=== PATIENT | male | born 1945 | race Caucasian/White ===

== ENCOUNTER 2020-01-17 08:42 | Outpatient (CLI) | payer MEDICARE, BC, SELFPAY ==
--- NOTE | 2020-01-17 09:14 | NMCV_ITS ---
NM geneva perf SPECT r/s* [id number] Richards, [place] Age: 74 Gender: M : 1945 Exam Date: 01/17/2020 10:00 Ordering Phys: Payam Hicks MD ([email or web address]) Technologist: IDRIS Warner Exam Location: [facility] Indications: SOB STRESS TEST Please see separate stress test report in [facility] for full findings IMAGE PROTOCOL Rest/Stress 1 Lexiscan Day Radiopharmaceutical Dose (mCi) Administration Site Administered by Rest: Tc-99m 11.0 IV IDRIS Salgado Sestamibi Stress:Tc-99m 33.0 IV IDRIS Warner Sestamibi Rest: 17-Jan-2020 60 Discovery 630 Stress: 17-Jan-2020 45 Discovery 630 0.4mg Lexiscan. Supine position only as patient was unable to lay prone. SPECT RESULTS Technical Quality: Good Raw Data Analysis: Normal Image Corrections: No attenuation or motion correction applied Summed Stress Score: 10 Summed Rest Score: 11 Summed Difference Score: 1 PERFUSION FINDINGS Medium-sized area of fixed perfusion defect noted in basal to distal inferior wall suggestive of old myocardial infarction versus scarring. FUNCTIONAL RESULTS (calculated via Gated SPECT) Stress Image LV EF (%): 40 Stress EDV (mL):131 TID: 1.07 Stress ESV (mL):79 Rest Image LV EF (%): 40 FUNCTIONAL FINDINGS: Inferior wall akinesis IMPRESSIONS Medium-sized area of old myocardial infarction versus scarring noted in basal to distal inferior wall , EKG segment will be documented separately..Thsi study is negative for ischemia. Payam Hicks MD (Electronically Signed) Final Date: 18 January 2020 20:14 S
--- NOTE | 2020-01-17 09:14 | ECG_ITS ---
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 Interpretive Statements NAME OF STUDY: LEXISCAN SESTAMIBI STRESS TEST INDICATION: [Shortness of Breath, ] NOTE: Please note that this is the electrocardiogram portion of the Lexiscan/Sestamibi stress test. The perfusion scan will be documented separately. DATA: Baseline heart rate was [65] beats per minute. Baseline blood pressure was [173/102] millimeters of mercury. Target heart rate was [146]. Maximum heart rate achieved was 100[]. which was [68]% of the predicted target heart rate. Maximum blood pressure was [186/108] millimeters of mercury. The reason for ending the test was completion of the protocol. The patient did not experience any symptoms. ELECTROCARDIOGRAM: BASELINE: Sinus rhythm paced rythm EXERCISE: After Lexiscan injection, no ST-T changes suggestive of ischemic noted. No arrhythmia noted. CONCLUSION: Please note due to baseline abnormality of the EKG specificity and sensitivity of the EKG portion of LexiScan MIBI stress test will be low 1. EKG not suggestive of ischemia 2. Lexiscan injection unremarkable. 3. Perfusion scan will be documented separately. HEART: Regular S1 and S2. Electronically Signed On 01-19-2020 20:34:52 CDT by Payam Hicks M.D. [id number]
--- NOTE | 2020-01-17 09:14 | USCV_ITS ---
[place] Richards Age: 74 Gender: M : 1945 Exam Date: 01/17/2020 09:15 Ordering Phys: Payam Hicks MD ([email or web address]) Technologist: Herson Silveira Exam Location: [facility] [place] Indication: CP BP: 149 / 75 HR: Rhythm: Sinus Technical Quality: Adequate MEASUREMENTS (Male / Female) Normal Values 2D ECHO LV Diastolic Diameter PLAX 4.9 cm 4.2 - 5.9 / 3.9 - 5.3 cm LV Systolic Diameter PLAX 2.9 cm IVS Diastolic Thickness 1.0 cm 0.6 - 1.0 / 0.6 - 0.9 cm IVS Systolic Thickness 1.4 cm LVPW Diastolic Thickness 1.2 cm 0.6 - 1.0 / 0.6 - 0.9 cm LVPW Systolic Thickness 1.5 cm LVOT Diameter 2.2 cm LV Ejection Fraction 2D Teich 72.4 % LV Ejection Fraction MOD 2C 62.9 % LV Ejection Fraction 2C AL 62.9 % LA Diameter 4.7 cm LA Width 5.1 cm LA Height 4.5 cm RA Width 3.8 cm RA Height 5.5 cm Aorta at Sinotubular Diameter 3.4 cm M-MODE LV Diastolic Diameter MM 4.6 cm 4.2 - 5.9 / 3.9 - 5.3 cm LV Systolic Diameter MM 3.2 cm LV Ejection Fraction MM Teich 56.4 % IVS Diastolic Thickness MM 1.1 cm 0.6 - 1.0 / 0.6 - 0.9 cm IVS Systolic Thickness MM 1.6 cm LVPW Diastolic Thickness MM 1.3 cm 0.6 - 1.0 / 0.6 - 0.9 cm LVPW Systolic Thickness MM 1.3 cm RV Diastolic Diameter MM 1.8 cm Aortic Annulus Diameter 3.6 cm LA Ao Ratio MM 1.3 MV E Point Septal Separation 1.2 cm DOPPLER AV Peak Velocity 197.0 cm/s LVOT Peak Velocity 92.0 cm/s AV Area Cont Eq vti 1.4 cm squared AV Area Cont Eq pk 1.8 cm squared MV Area PHT 2.1 cm squared Mitral E to A Ratio 0.7 MV E' Velocity 7.0 cm/s Mitral E to MV E' Ratio 9.4 Mitral E to LV E' Lateral Ratio 9.4 Mitral E to LV E' Septal Ratio 9.5 TR Peak Velocity 151.0 cm/s TR Peak Gradient 9.1 mmHg TV Peak E Velocity 74.0 cm/s Right Atrial Pressure 3.0 mmHg Pulmonary Artery Systolic Pressu 12.1 mmHg FINDINGS Left Ventricle Normal left ventricular cavity size. Normal left ventricular systolic function. No regional wall motion abnormalities. Left ventricular ejection fraction is estimated at 56 %. Grade I/IV diastolic dysfunction (abnormal relaxation filling pattern), normal to mildly elevated filling pressures. Right Ventricle The right ventricle is normal in size and function. Right Atrium The right atrium is normal in size. Left Atrium The left atrium is normal in size. Mitral Valve Moderately thickened mitral valve. Moderate mitral annular calcification. No mitral valve stenosis. No mitral valve regurgitation. Aortic Valve Moderate aortic valve calcification. Moderate aortic valve stenosis, mean gradient 6.6 mmHg, BRIAN 1.4 cm squared. No aortic valve regurgitation. Tricuspid Valve Structurally normal tricuspid valve without significant stenosis or regurgitation. Pulmonary artery systolic pressure is normal. Pulmonic Valve Structurally normal pulmonic valve without significant stenosis. There is no pulmonic regurgitation. Pericardium Normal pericardium without effusion. Aorta Normal ascending aorta dimension. CONCLUSIONS 1-Normal left ventricular cavity size. Normal left ventricular systolic function. No regional wall motion abnormalities. Left ventricular ejection fraction is estimated at 56 %. Grade I/IV diastolic dysfunction (abnormal relaxation filling pattern), normal to mildly elevated filling pressures. 2-Moderately thickened mitral valve. Moderate mitral annular calcification. No mitral valve stenosis. No mitral valve regurgitation. 3-Moderate aortic valve calcification. Moderate aortic valve stenosis, mean gradient 6.6 mmHg, BRIAN 1.4 cm squared. No aortic valve regurgitation. 4-There is no pericardial effusion. 5-Pulmonary artery systolic pressure is within normal limits. 6-Right atrial pressure is around 5 mm of mercury. 7-There are no prior echocardiogram studies to compare. Payam Hicks MD (Electronically Signed) Final Date: 19 January 2020 19:19 S
[2020-01-17 09:15] VITALS: BMI 44.6
[2020-01-17] MEDS: regadenoson 0.4 Mg/5 ml Syringe IVP (10:44)
[2020-01-17 11:11] VITALS: BP 164/96; PULSE 74
== END 2020-01-17 08:43 | disposition home or self-care (01) ==
LOC: CDL 08:48
PROVIDERS: PCP Physician Assistant Medical; Visit Provider Internal Medicine Cardiovascular Disease
DX: R06.02 Shortness of breath (principal); I08.0 Rheumatic disorders of both mitral and aortic valves
CPT/HCPCS: 78452; 93017; 93306; A9500; J2785

== ENCOUNTER → 2022-01-11 10:18 | Outpatient (BNVA) | payer MEDICARE, BC, SELFPAY | PROVIDERS: PCP Nurse Practitioner Family; Visit Provider Internal Medicine Cardiovascular Disease | DX: Z45.010 Encounter for checking and testing of cardiac pacemaker pulse generator [battery] (principal) | CPT/HCPCS: 93280 ==

== ENCOUNTER → 2022-02-01 11:10 | Outpatient (BNVA) | payer MEDICARE, BC, SELFPAY | PROVIDERS: PCP Nurse Practitioner Family; Visit Provider Nurse Practitioner Family | DX: I10 Essential (primary) hypertension (principal); Z95.0 Presence of cardiac pacemaker | CPT/HCPCS: 99213; 99214 ==

== ENCOUNTER → 2022-04-12 11:02 | Outpatient (BNVA) | payer MEDICARE, BC, SELFPAY | PROVIDERS: PCP Nurse Practitioner Family; Visit Provider Internal Medicine Cardiovascular Disease | DX: Z45.010 Encounter for checking and testing of cardiac pacemaker pulse generator [battery] (principal) | CPT/HCPCS: 93279 ==

== ENCOUNTER → 2022-04-15 09:53 | Outpatient (BNVA) | payer MEDICARE, BC, SELFPAY | PROVIDERS: PCP Nurse Practitioner Family; Visit Provider Internal Medicine Cardiovascular Disease | DX: R07.2 Precordial pain (principal); I35.8 Other nonrheumatic aortic valve disorders; Z95.0 Presence of cardiac pacemaker; I10 Essential (primary) hypertension; I49.9 Cardiac arrhythmia, unspecified; Z87.891 Personal history of nicotine dependence | CPT/HCPCS: 93005; 99214 ==

== ENCOUNTER → 2022-06-11 13:54 | Outpatient (BNVA) | payer MEDICARE, BC, SELFPAY | PROVIDERS: PCP Nurse Practitioner Family; Referring Provider Nurse Practitioner Family; Visit Provider Orthopaedic Surgery | DX: M17.0 Bilateral primary osteoarthritis of knee (principal) | CPT/HCPCS: 73560; 73565; 99204 ==

== ENCOUNTER 2022-08-01 09:40 | Outpatient (CLI) | payer OTHER, SELFPAY ==
--- NOTE | 2022-08-01 10:00 | CT_ITS ---
WS: [id number] CT RIGHT KNEE, NONCONTRAST JOSE TECHNIQUE: Noncontrast CT of the RIGHT knee to include the RIGHT hip and ankle. JOSE protocol CLINICAL INFORMATION: pre op planning COMPARISON: None. DLP: 949.[address] scans at [facility] use at least one of these dose optimization techniques: automated e xposure control; mA and/or kV adjustment per patient size (includes targeted exams where dose is matc hed to clinical indication); or iterative reconstruction. FINDINGS: Advanced degenerative arthritis medial joint compartment with [id number] articulation. Hypertrophic changes along the joint line. Hypertrophic patella. Advanced joint space narrowing at the patellofem oral articulation. Mild degenerative arthritis sacroiliac joints. Vascular calcification. Mild degene rative narrowing both hips RIGHT greater than LEFT with subchondral cystic change. Prostate calcification. A few slightly prominent inguinal lymph nodes RIGHT greater than LEFT nonspec ific but likely reactive. Largest in the RIGHT measuring 14 mm. Tiny suprapatellar effusion. CT/CT knee RT [facility] IMPRESSION: Images obtained for preoperative purposes.
== END 2022-08-01 09:41 | disposition home or self-care (01) ==
LOC: RAD 09:41
PROVIDERS: PCP Nurse Practitioner Family; Visit Provider Orthopaedic Surgery
DX: Z01.818 Encounter for other preprocedural examination (principal)
CPT/HCPCS: 73700

== ENCOUNTER → 2022-08-02 10:01 | Outpatient (BNVA) | payer OTHER, SELFPAY | PROVIDERS: PCP Nurse Practitioner Family; Visit Provider Internal Medicine Cardiovascular Disease | DX: Z45.010 Encounter for checking and testing of cardiac pacemaker pulse generator [battery] (principal) | CPT/HCPCS: 93279 ==

== ENCOUNTER 2022-08-12 14:16 | Inpatient (IN) | payer OTHER, SELFPAY ==
[2022-08-05 11:11] VITALS: BMI 41.8
--- NOTE | 2022-08-05 11:33 | P.ANESASSM_ITS ---
Pre-Anesthetic Assessment Height/Weight: Height 1.8 m Weight 136.078 kg Operation Date: 08/12/22 07:00 Proposed Procedures p right bashir total knee arthroplasty/ 67886 ,M17.0(Right) - oNrman Padron MD Familial anesthetic complications: None Social No alcohol and No tobacco Exam alert, oriented x 3, clear to auscultation bilaterally and regular rate & rhythm Airway Mallampati: Class III Dentition: false Pulmonary None reported CV/HEM Arrythmia (bradycardia - pacemaker) and None reported echo CONCLUSIONS ?1-Normal left ventricular cavity size. Normal left ventricular ?systolic function. No regional wall motion abnormalities. Left ?ventricular ejection fraction is estimated at 56 %. Grade I/IV ?diastolic dysfunction (abnormal relaxation filling pattern), ?normal to mildly elevated filling pressures. ?2-Moderately thickened mitral valve. Moderate mitral annular ?calcification. No mitral valve stenosis. No mitral valve ?regurgitation. ?3-Moderate aortic valve calcification. Moderate aortic valve ?stenosis, mean gradient 6.6 mmHg, BRIAN 1.4 cm squared. No aortic valve ?regurgitation. ?4-There is no pericardial effusion. ?5-Pulmonary artery systolic pressure is within normal limits. ?6-Right atrial pressure is around 5 mm of mercury. ?7-There are no prior echocardiogram studies to compare. None reported Hepatic None reported GI None reported Metabolic Diabetes Mellitus (borderline) and Morbid Obesity [facility] [place]/skel Lower Back Pain and Osteoarthritis/DJD Neuropsych None reported Anesthetic Plan ASA status: 3 Anesthesia: Regional (specify below) Other: spinal and nerve Risk of > 500 ml blood loss (7ml/kg in children): Yes, adequate IV access and fluids planned Other Pertinent Information Patient refuses rbcs, platelets, and plasma.Will not accept cellsaver, even in continuity. Will research albumin to see if he would accept. Medications/Allergies Home Medications Medication Instructions Recorded Confirmed Last Taken Type acetaminophen 325 mg tablet 325 mg PO QID PRN Pain 03/09/21 08/05/22 Unknown History (Tylenol) carvedilol 6.25 mg tablet 6.25 mg PO BID 30 days #60 tabs 04/15/22 08/05/22 Unknown Rx metformin 500 mg tablet 500 mg PO BID 06/11/22 08/05/22 08/04/22 History tamsulosin 0.4 mg capsule 0.4 mg PO DAILY 06/11/22 08/05/22 Unknown History naproxen sodium 220 mg tablet 220 mg PO BID PRN Pain 08/05/22 08/05/22 Unknown History (Aleve) Allergies Allergy/AdvReac Type Severity Reaction Status Date / Time losartan Allergy Mild ADV-Weaknes Verified 06/11/22 13:40 s prednisone Allergy vision Verified 06/11/22 13:40 changes PFSH Anesthesia Medical History Hx of cardiac pacemaker Hypertension Family History Mother CAD (coronary artery disease) pacemaker Diabetes Father CAD (coronary artery disease) [place] Cancer Diabetes Brother CAD (coronary artery disease) Diabetes Sister Diabetes Other Hypertension Denies family history of Clotting disorder Dementia Chronic kidney disease (CKD) Suicide Anesthesia complication Bleeding disorder Lung disease Stroke Social History Smoking and tobacco status: former smoker Alcohol intake: current Alcohol intake frequency: holidays/special occasions only Data Anesthesia Cardiac Studies: Echocardiogram Ultrasound 01/17/20 Sestamibi Stress Test (Cardiology) 01/16
[2022-08-12] VITALS (17 sets, daily range): BP systolic 146–190; BP diastolic 85–110; PULSE 59–94; RESP 16–19; TEMP 36.4–36.9; O2SAT 93–96
--- NOTE | 2022-08-12 07:04 | W.PM.OPSFHP ---
Same Day Surgery H&P Indication for Procedure/HPI DATE OF PROCEDURE: August 12, 2022 CHIEF COMPLAINT/INDICATIONFOR SURGICAL PROCEDURE: Osteoarthritis bilateral knees here for right total knee arthroplasty PREOP DIAGNOSIS: Osteoarthritis right knee PLANNED PROCEDURE: Operation Date: 08/12/22 09:40 Proposed Procedures p right bashir total knee arthroplasty/ 13966 ,M17.0(Right) - Norman Padron MD 77 year old male patient here for right total knee arthroplasty. He states that he has had pain for 8 years. He states that he has pain in the anterior, medial and lateral knee. He states that his pain is reproduced with walking on uneven ground, prolonged standing and walking. He resulted to using a cane as his knee buckle and catch on him. He states that he has previously been treated with cortisone injections which gave him only temporary relief. He reports a prior knee meniscectomy in the 1969's. He takes naproxen for pain/discomfort.? He states he has been putting off knee surgery waiting for the ideal time.? Is now resolved.? He can scarcely walk more than 20 yards without severe discomfort.? He has horses and a small hobby farm and is unable to take care of things as he would like.? He now feels he is ready to consider knee replaced Medications/Allergies* Home Medications Medication Instructions Recorded Confirmed Type acetaminophen 325 mg tablet 325 mg PO QID PRN Pain 03/09/21 08/05/22 History (Tylenol) metformin 500 mg tablet 500 mg PO BID 06/11/22 08/05/22 History tamsulosin 0.4 mg capsule 0.4 mg PO DAILY 06/11/22 08/05/22 History naproxen sodium 220 mg tablet 220 mg PO BID PRN Pain 08/05/22 08/05/22 History (Aleve) Allergies/Adverse Reactions Allergy/AdvReac Type Severity Reaction Status Date / Time losartan Allergy Mild ADV-Weaknes Verified 06/11/22 13:40 s prednisone Allergy vision Verified 06/11/22 13:40 changes Pertinent History/Comorbid Conditions* Medical History (Updated 06/11/22 @ 14:27 by Norman Padron MD) Hx of cardiac pacemaker Hypertension Family History (Updated 04/15/22 @ 10:16 by Yoly Goncalves RN) Diabetes Mother Father Brother Sister CAD (coronary artery disease) Mother pacemaker Father [place] Brother Cancer Father Hypertension Denies family history of Clotting disorder Dementia Chronic kidney disease (CKD) Suicide Anesthesia complication Bleeding disorder Lung disease Stroke Social History Smoking and tobacco status: former smoker Alcohol intake: current Alcohol intake frequency: holidays/special occasions only Pertinent Exam Findings alert, oriented x 3, clear to auscultation bilaterally, regular rate & rhythm and operative site marked KNEE right Tender over right medial joint line RANGE OF MOTION: ? ? ? RIGHT LIMB ? Extension:10 ? Flexion: 100 Crepitance beneath atella Varus alignment knee which is not entirely passively correctable Palpable dorsalis pedis pulses bilaterally. MOTOR: Strong quadriceps hamstrings tibialis anterior and extensor houses longus strength SENSATION: Intact to light touch Recommendations Surgery/Procedure today Coding Level of Care Code Acute Code for Loren Mitchell
[2022-08-12] MEDS: gabapentin 300 mg Capsule PO (08:14)
[2022-08-12] MEDS: CELEcoxib 200 mg Capsule 400 MG PO (08:14)
[2022-08-12] MEDS: acetaminophen 500 mg Tablet 1000 MG PO ×3 (08:14→22:29)
[2022-08-12] MEDS: oxyCODONE 20 mg ER (12 HR) Tablet PO (08:14)
[2022-08-12 08:27] LABS: Glucose Point of Care 181 mg/dL (70-110)
--- NOTE | 2022-08-12 08:29 | ECG_ITS ---
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 Measurements Intervals [place] Rate: 61 P: 0 KS: 0 QRS: -68 QRSD: 190 T: 114 QT: 481 QTc: 486 Interpretive Statements ELECTRONIC VENTRICULAR PACEMAKER Compared to ECG 04/18/2018 09:00:26 No significant changes Electronically Signed On 08-12-2022 10:00:26 LEASING REPRESENTATIVE by Rudolph Jefferson M.D. [id number]
--- NOTE | 2022-08-12 09:18 | ANES.PAUD2 ---
Pre-Anesthetic Update Pre-Anesthetic Assessment: Date of Surgery/Procedure: 08/12/22 Preop Diagnosis: Osteoarthritis right knee Proposed Procedure: Operation Date: 08/12/22 09:40 Proposed Procedures p right bashir total knee arthroplasty/ 34282 ,M17.0(Right) - Norman Padron MD Any changes to Pre-Anesthetic Assessment?: No Last Intake: Intake Last Liquid Date 08/11/22 Last Liquid Time 21:00 Last Solid Date 08/08/22 Last Solid Time 19:00 Vitals: Temperature 97.6 F 08/12/22 08:04 Temperature Source Temporal Artery S can 08/12/22 08:04 Pulse Rate 94 08/12/22 08:04 Respiratory Rate 18 08/12/22 08:14 Respiratory Depth Normal 08/12/22 08:14 Blood Pressure 189/110 08/12/22 08:04 Blood Pressure Maira n 136 08/12/22 08:04 Pulse Oximetry 96 08/12/22 08:04 Oxygen Delivery Me thod 08/12/22 08:04 Exam: Pre-Anes Outpt Exam: alert, oriented x 3, clear to auscultation bilaterally and regular rate & rhythm Cardiac Studies: Echocardiogram Ultrasound 01/17/20 Sestamibi Stress Test (Cardiology) 01/17/20
[2022-08-12] MEDS: ceFAZolin 2,000 MG in sodium chloride 0.9% (plus) 50 ML 100 MG IV ×2 (10:13→18:05)
[2022-08-12] MEDS: tranexamic acid 1,000 mg/10mL SDV 1000 MG IV (11:00)
[2022-08-12] MEDS: ketorolac 30 mg/mL INJ XX (11:11)
[2022-08-12] MEDS: tranexamic acid 1,000 mg/10mL SDV 1000 MG XX (11:11)
[2022-08-12] MEDS: EPINEPHrine 1 mg/mL INJ XX (11:12)
--- NOTE | 2022-08-12 11:52 | ANES.PROC ---
Anesthesia Procedures Procedure/Date: 08/12/22 Nerve Block ^: Nerve Block 1: Main Anesthesia: spinal anesthesia block Time Out Performed: Yes Consent: requested by attending/covering physician, from patient, risks and benefits reviewed and patient agrees to proceed Nerve block location: adductor canal (right) Anesthesia monitors applied: pulse oximetry, EKG, BP cuff and oxygen Nerve block position: supine Anesthetic Used: ropivicaine 0.5% Amount of anesthesia used (mL): 20 Ultrasound used to: recognize landmarks Nerve Stimulator Used?: No Interscalene/Femoral BLK: 4 stimuplex 21 g needle used for position and inplane approach Injection: neg aspiration of heme Patient Tolerated Procedure: well Complications: none
--- NOTE | 2022-08-12 12:47 | XR_ITS ---
WS: [id number] Right knee, AP and lateral views, 08/12/2022 Clinical Data: Right Total Knee arthroplasty Comparison: Right knee, 06/19/2022 Findings: The right knee arthroplasty is in good position. There is soft tissue air in the distal right thigh, probably from recent surgery. XR/XR knee RT 1-2V 11417 Impression: Right knee arthroplasty.
--- NOTE | 2022-08-12 12:48 | P.OP_ITS ---
Operative Report Date of procedure: August 12, 2022 Pre-op diagnosis: Preop Diagnosis Osteoarthritis right knee Post-op diagnosis: same Post-op diagnosis: Same Post-op findings: Same Procedure done: [] total knee arthroplasty Implants: Mauricio Triathalon total knee arthroplasty components were used includin) Size 7 triathalon cruciate retaining femoral component 2) Size 8 Tritanium tibial component 3) Size 8/9mm thickness CS tibial bearing insert Pathology: none sent Surgeon: Norman Padron President [employer] Company: Jaleel Valdez President [employer] Company: The nurse practitioner the nurse practitioner assisted with critical portions of the case including positioning, draping, exposure, component implantation, closure and dressing application and is present through the entirety of the case. Anesthesia: Nerve Block (Spinal, adductor canal block) Estimated blood loss (mL): 200 Findings: The patient eburnated bone over the medial femoral condyle and medial tibial plateau. There thinning of his patellar cartilage and peripheral osteophytes but anatomy was preserved and the patella articulated well with the femoral component Condition: stable Disposition: PACU Brief History: The admission history and physical Procedure: The patient was taken to the operating room. Patient was given 1 g of tranexamic acid and 2 g of Ancef. The above anesthesia provided by the anesthesia service. A timeout was performed. The patient was prepped and draped in the usual fashion with the lower extremity exposed. A anterior incision was made, midline, from a point proximal to the patella to the distal tibial tubercle. The knee was entered through a medial parapatellar approach. The patella could be displaced laterally and the knee flexed. The patellar fat pad was resected to provide better visibility. Retractors were placed medially and laterally adjacent to the tibial plateau. At a point approximately 8 cm above the patella, 2 small incisions were made with a scalpel blade and 2 long threaded pins were placed into the anterior medial femur engaging both cortices. The femoral arrays were placed over these pins and secured. At a point 8 cm distal to the tibial tubercle. 2 shorter bicortical threaded pins were placed across the anterior medial tibia and the tibial arrays placed. A checkpoint was made just proximal and medial to the medial femoral condyle and just medial to the tibial plateau. As the knee was initially in 60 degrees of varus rongeur was used to remove osteophytes from the medial femoral condyle and medial tibial plateau. A release was also accomplished of the proximal medial collateral ligament from the tibia. After this release the knee could be brought into 3 degrees of anatomic varus. Small osteotomes were placed in the joint in both flexion and extension to determine ligamentous laxity. The tibia was cut an additional 2 degrees of varus and elevated 2 mm. The femur was cut in 2 degrees additional external rotation accommodate the lateral joint space and flexion.. The [employer] robot was then introduced to the field and the femur and tibia cut in accordance with our plan. he [employer] was then used to provide hemostasis, particularly about the posterior capsule. A trial with the above components provided excellent stability and full range of motion. The femur was then prepared for the femoral pegs of the component in the tibia for the tibial component. The femur and tibia were then press-fit into place. An osteotome was used to remove the lateral 8 mm of the patella to minimize chances of later impingement. A neurectomy was accomplished circumferentially about the patella with electrocautery and lateral osteophytes removed. Surfaces were cleaned with a gentamicin solution. The femur and tibia were then press-fit into place. The posterior capsule and collateral ligaments were then injected with a solution of 100 mL of 0.2% ropivacaine, 1 mL of a 1:1000 epinephrine solution, 30 mg of Toradol, and 1 g of tranexamic acid. Final polyethylene component was then snapped into place into the tibia. The extensor retinaculum was closed with a running 1 Stratafix interrupted 1 Ethibond. The subcutaneous tissues were closed with 2-0 Vicryl and the skin was closed with a running 4-0 Stratafix. The wound was covered with a Dermabond Prineo dressing. It was covered with 4xrs and a compressive Tubigauze was applied. The patient was taken to recovery room in stable condition.
--- NOTE | 2022-08-12 13:47 | PC.NURSE ---
1447-I have called for xray over 30 minutes ago, and called again about 10 minutes ago. I have been ready to take the patient upstairs for over 20 minutes. but still waiting on xray.
--- NOTE | 2022-08-12 13:49 | PC.NURSE ---
1349- xray finally arrived.
--- NOTE | 2022-08-12 14:54 | ANE.PACU2 ---
Inpatient post-anesthesia follow up: Airway intact: Yes Vital signs: Temperature 98.4 F Pulse Rate 61 Respiratory Rate 16 Blood Pressure 152/97 Pulse Oximetry 95 Oxygen Delivery Me thod Room Air Oxygen Flow Rate Fraction of Inspir ed Oxygen Hydration adequate: Yes Nausea and vomiting: No Pain level: 2 Mental status: Baseline
[2022-08-12] MEDS: oxyCODONE 5 mg IR Tab/Cap PO (14:56)
[2022-08-12] MEDS: sodium chloride 0.9% 1,000 ML 100 ML IV (18:05)
[2022-08-12] MEDS: carvedilol 6.25 mg Tablet PO (18:05)
[2022-08-12] MEDS: sennosides-docusate Tablet 2 TAB PO (18:14)
[2022-08-12] MEDS: CELEcoxib 200 mg Capsule PO (19:48)
[2022-08-13] VITALS: BP 137/83; PULSE 63; RESP 19; TEMP 36.6; O2SAT 96
[2022-08-13] MEDS: ceFAZolin 2,000 MG in sodium chloride 0.9% (plus) 50 ML 100 MG IV ×2 (02:13→08:07)
[2022-08-13 02:40] LABS: Hemoglobin 12.9 g/dL (11.7-16.6)
[2022-08-13 04:26] VITALS: BP 151/84; PULSE 60; RESP 19; TEMP 36.7; O2SAT 96
[2022-08-13 06:00] VITALS: PULSE 62
[2022-08-13] MEDS: acetaminophen 500 mg Tablet 1000 MG PO (06:30)
--- NOTE | 2022-08-13 07:05 | P.DS_ITS ---
Discharge Providers Date of Admission: 08/12/22 14:16 Date of Discharge: August 13, 2022 Attending Provider at Admission: Norman Gillette MD Attending Provider at Discharge: Norman Gillette MD Primary Care Provider: Zechariah Rodriguez Diagnoses at Discharge Discharge Diagnosis (1) Status post right knee replacement: Status: Acute Reason for Visit Reason for Visit: M17.0, 63801 Hospital Course Hospital Course The patient tolerated surgery well. They remained hemodynamically stable. They was begun on Eliquis and foot for DVT prophylaxis. The patient was mobilized with therapy beginning the day of surgery and by the first postoperative day independent with the walker. As the pain was adequately controlled and they were fully mobile they were discharged home. Physical Exam Narrative: On the day of discharge the knee incision was clean. They had no drainage. There is minimal swelling in the thigh and knee and the calf. No distal neurovascular deficits were noted Urinary Catheter Management: Doll: Cath Placed During This Visit: yes, but has since been removed by the nurse Reason for Continuing Indwelling Catheter: Decision to DC Catheter Urinary Catheter Date of Insertion: 08/12/22 Urinary Catheter Time of Insertion: 10:45 Date Urinary Catheter Removed: 08/13/22 Time Urinary Catheter Discontinued: 06:45 Discharge Data Studies Completed and Pending Completed Studies During Hospitalization Category Date Time Status XR knee RT 1-2V 93997 Routine Exams 08/12/22 12:47 Completed Radiology Impressions Knee X-Ray 08/12/22 12:47 Impression: Right knee arthroplasty. Laboratory Results Hgb 12.9 g/dL (11.7-16.6) 08/13/22 02:13 POC Glucose 181 mg/dL (70-110) H 08/12/22 08:19 Vitals Last Vital Signs Temp 98.1 F 08/13/22 04:26 Pulse 60 08/13/22 04:26 Resp 19 H 08/13/22 04:26 BP 151/84 08/13/22 04:26 Pulse Ox 96 08/13/22 04:26 O2 Del Method 08/12/22 16:00 Discharge Plan Discharge Patient Disposition: Home Health Service Condition: Stable Prescriptions: New celecoxib 200 mg Capsule 200 mg PO Q12H 14 Days Qty: 28 0RF acetaminophen 500 mg Tablet 1,000 mg PO Q8H 14 Days Qty: 84 0RF oxycodone 5 mg Tablet 5 mg PO Q4H PRN (Reason: Moderate Pain) 7 Days Qty: 40 0RF Eliquis 5 mg Tablet 2.5 mg PO BID 10 Days Qty: 10 0RF Continued carvedilol 6.25 mg tablet 6.25 mg PO BID 30 Days Qty: 60 5RF Rx Instructions: must administer with a meal/food metformin 500 mg tablet 500 mg PO BID tamsulosin 0.4 mg capsule 0.4 mg PO DAILY Discontinued acetaminophen [Tylenol] 325 mg tablet 325 mg PO QID PRN (Reason: Pain) naproxen sodium [Aleve] 220 mg Tablet 220 mg PO BID PRN (Reason: Pain) Discharge Orders: Discharge Order (Routine); Ordered 08/13/22 Ordered By: Norman Gillette Referrals: Jaleel Valdez FNP [Physician Senior Php Web Developer] - 08/16/22 8:30 am [facility], [Staff Physician] - Discharge Diet: Advance as tolerated Discharge Activity: Limit activity as instructed Patient Instructions: Oxycodone/Acetaminophen (By mouth), Celecoxib (By mouth), Apixaban (By mouth), Knee Replacement (GEN), Opioid Safety Activity Restrictions/Additional Instructions: Okay to shower Keep Tubigauze sleeve in place for swelling. Okay to remove for hygiene. Apply FirstIce up to 20 min/hr for pain and swelling Take Celebrex twice a day for the next 15 days for pain , discontinue other anti-inflammatories Take Tylenol 500mg (2 tabs) as needed 3 times a day for mild pain take oxycodone for breakthrough pain. Exercises per physical therapy. May weight-bear as tolerated on total knee arthroplasty IF HAVE ANY PROBLEMS OR QUESTIONS CALL HOSPITAL CHIEF OPERATOR LOCK TENDER AT AND ASK TO HAVE DR. GILLETTE PAGED. Discharge Attestations Time Spent in Discharge Care*: other Quality Metrics Clinical Quality Measures [ No reported AMI, CVA or VTE this stay] Coding Level of Care Code Acute [facility] note Diagnoses Status post right knee replacement Z96.651
[2022-08-13] MEDS: carvedilol 6.25 mg Tablet PO (08:07)
[2022-08-13] MEDS: CELEcoxib 200 mg Capsule PO (08:07)
[2022-08-13] MEDS: apixaban 5 mg Tablet 2.5 MG PO (08:07)
[2022-08-13] MEDS: sennosides-docusate Tablet 2 TAB PO (08:10)
[2022-08-13] MEDS: tamsulosin 0.4 mg Capsule PO (08:15)
[2022-08-13 09:31] VITALS: BP 160/76; PULSE 68; RESP 16; TEMP 36.5; O2SAT 96
== END 2022-08-13 11:53 | disposition home health service (06) | DRG 470 ==
LOC: MEDSURG 14:16
PROVIDERS: Admitting Provider Orthopaedic Surgery; PCP Nurse Practitioner Family; Visit Provider Orthopaedic Surgery
PROC: 8E0Y0CZ Robotic Assisted Procedure of Lower Extremity, Open Approach (ICD-10-PCS; CPT 27447; principal; 2022-08-12 09:40)
DX: M17.11 Unilateral primary osteoarthritis, right knee (principal); Z95.0 Presence of cardiac pacemaker; I10 Essential (primary) hypertension; Z87.891 Personal history of nicotine dependence
CPT/HCPCS: 36415; 36416; 51702; 73560; 73700; 82962; 85018; 93005; 97110; 97116; 97161; 97165; 97530; C1713; C1776; J0171; J0690; J1170; J1580; J1885; J2370; J2704; J2795; J7030

== ENCOUNTER → 2022-08-16 08:34 | Outpatient (BNVA) | payer OTHER, SELFPAY | PROVIDERS: PCP Nurse Practitioner Family; Visit Provider Nurse Practitioner Family | DX: Z96.651 Presence of right artificial knee joint (principal) | CPT/HCPCS: 99024 ==

== ENCOUNTER → 2022-08-30 08:17 | Outpatient (BNVA) | payer OTHER, SELFPAY | PROVIDERS: PCP Nurse Practitioner Family; Visit Provider Nurse Practitioner Family | DX: Z96.651 Presence of right artificial knee joint (principal) | CPT/HCPCS: 99213 ==

== ENCOUNTER → 2022-09-20 10:54 | Outpatient (BNVA) | payer OTHER, SELFPAY | PROVIDERS: PCP Nurse Practitioner Family; Visit Provider Nurse Practitioner Family | DX: Z96.651 Presence of right artificial knee joint (principal) | CPT/HCPCS: 73560; 73565; 99024 ==

== ENCOUNTER → 2022-10-14 11:31 | Outpatient (BNVA) | payer OTHER, SELFPAY | PROVIDERS: PCP Nurse Practitioner Family; Visit Provider Internal Medicine Cardiovascular Disease | DX: I35.8 Other nonrheumatic aortic valve disorders (principal); I49.8 Other specified cardiac arrhythmias; R94.39 Abnormal result of other cardiovascular function study; Z95.0 Presence of cardiac pacemaker; I10 Essential (primary) hypertension; Z87.891 Personal history of nicotine dependence | CPT/HCPCS: 99214 ==

== ENCOUNTER → 2022-12-19 12:55 | Outpatient (BNVA) | payer OTHER, SELFPAY | PROVIDERS: Visit Provider Nurse Practitioner Family | DX: Z96.651 Presence of right artificial knee joint (principal); M25.551 Pain in right hip | CPT/HCPCS: 73560; 73565; 99213 ==

== ENCOUNTER → 2022-12-26 13:43 | Outpatient (BNVA) | payer OTHER, SELFPAY | PROVIDERS: Visit Provider Nurse Practitioner Family | DX: M16.11 Unilateral primary osteoarthritis, right hip (principal); M54.10 Radiculopathy, site unspecified | CPT/HCPCS: 73502; 99213 ==

== ENCOUNTER → 2023-02-17 10:41 | Outpatient (BNVA) | payer OTHER, SELFPAY | PROVIDERS: Visit Provider Anesthesiology Pain Medicine | DX: M16.11 Unilateral primary osteoarthritis, right hip (principal) | CPT/HCPCS: 99204 ==

== ENCOUNTER → 2023-03-17 15:41 | Outpatient (BNVA) | payer OTHER, SELFPAY | PROVIDERS: Visit Provider Specialist | DX: M17.12 Unilateral primary osteoarthritis, left knee; M21.162 Varus deformity, not elsewhere classified, left knee; E66.01 Morbid (severe) obesity due to excess calories; Z68.41 Body mass index [BMI] 40.0-44.9, adult | CPT/HCPCS: 73560; 73565; 99204 ==

== ENCOUNTER → 2023-03-20 14:04 | Outpatient (BNVA) | payer OTHER, SELFPAY | PROVIDERS: Visit Provider Anesthesiology Pain Medicine | DX: M16.11 Unilateral primary osteoarthritis, right hip (principal) | CPT/HCPCS: 20610; 77002; J1030; J3490 ==

== ENCOUNTER 2023-04-02 15:11 | Outpatient (CLI) | payer OTHER, SELFPAY ==
--- NOTE | 2023-04-02 15:30 | CT_ITS ---
WS: [id number] CT LEFT KNEE, NONCONTRAST TECHNIQUE: Noncontrast CT of the LEFT knee to include the LEFT hip and ankle. [facility] CLINICAL INFORMATION: surgery COMPARISON: None. DLP: 2050.[address] scans at [facility] use at least one of these dose optimization techniques: automated e xposure control; mA and/or kV adjustment per patient size (includes targeted exams where dose is matc hed to clinical indication); or iterative reconstruction. FINDINGS: Advanced tricompartment arthritis LEFT knee with [id number] articulation medial joint compartment. Hypertrophic changes along the joint line. Hypertrophic patella. Advanced narrowing of the patellofem oral articulation. Osteopenia. Tiny suprapatellar effusion. Prominent prostate measuring 4.6 cm. Vasc ular calcification. Degenerative retrograde in the LEFT hip. Subchondral cystic change involving the RIGHT femoral head and acetabulum. IMPRESSION: Images obtained for preoperative purposes.
== END 2023-04-02 15:12 | disposition home or self-care (01) ==
PROVIDERS: PCP Emergency Medicine Emergency Medical Services; Visit Provider Specialist
DX: Z01.818 Encounter for other preprocedural examination (principal); M17.12 Unilateral primary osteoarthritis, left knee
CPT/HCPCS: 73700

== ENCOUNTER → 2023-04-07 11:44 | Outpatient (BNVA) | payer OTHER, SELFPAY | PROVIDERS: PCP Emergency Medicine Emergency Medical Services; Visit Provider Family Medicine | DX: Z01.818 Encounter for other preprocedural examination (principal) | CPT/HCPCS: 80053; 81000; 83036; 85025 ==

== ENCOUNTER → 2023-05-12 11:00 | Outpatient (BNVA) | payer OTHER, SELFPAY | PROVIDERS: PCP Emergency Medicine Emergency Medical Services; Visit Provider Internal Medicine Cardiovascular Disease | DX: I47.20 Ventricular tachycardia, unspecified (principal); Z95.0 Presence of cardiac pacemaker; I10 Essential (primary) hypertension; E11.9 Type 2 diabetes mellitus without complications; Z79.84 Long term (current) use of oral hypoglycemic drugs; Z87.891 Personal history of nicotine dependence | CPT/HCPCS: 99215 ==

== ENCOUNTER 2023-05-14 11:43 | Outpatient (CLI) | payer OTHER, SELFPAY ==
[2023-05-14 12:53] LABS: Basophils # 0.1 10^3/uL (0.0-0.1); Basophils % 0.9 %; Eosinophils # 0.3 10^3/uL (0.0-0.8); Eosinophils % 3.6 %; Hematocrit 45.7 % (37-53); Lymphocytes # 2.4 10^3/uL (0.8-4.8); Lymphocytes % 31.8 %; Mean Corpuscular HGB Conc 32.2 g/dL (30-55); Mean Corpuscular Volume 93.3 fl (82-101); Mean Platelet Volume 9.4 fL (7.4-10.4); Monocytes # 0.8 10^3/uL (0.2-0.9); Monocytes % 11.1 %; Neutrophils # 3.89 10^3/uL (1.8-7.7); Neutrophils % 52.3 %; Nucleated Red Blood Cells % 0 %; Platelet Count 253 10^3/cmm (157-399); Red Cell Distribution Width 13.8 % (12.1-15.1); White Blood Count 7.45 10^3/uL (3.29-11.43)
[2023-05-14 13:00] LABS: INR 1.03 (0.8-1.2)
[2023-05-14 13:07] LABS: Blood Urea Nitrogen 14 mg/dL (8-23); Calcium 9.3 mg/dL (8.5-10.5); Carbon Dioxide 25 mmol/L (22-29); Chloride 104 mmol/L (98-107); Glucose 195 mg/dL (65-115); Osmolality Calculated 294 mOsm/kg (285-295); Sodium 139 mmol/L (136-145)
== END 2023-05-14 11:44 | disposition home or self-care (01) ==
PROVIDERS: PCP Emergency Medicine Emergency Medical Services; Visit Provider Internal Medicine Cardiovascular Disease
DX: R06.02 Shortness of breath (principal); Z45.010 Encounter for checking and testing of cardiac pacemaker pulse generator [battery]; I48.91 Unspecified atrial fibrillation; Z79.01 Long term (current) use of anticoagulants; I25.118 Atherosclerotic heart disease of native coronary artery with other forms of angina pectoris
CPT/HCPCS: 36415; 80048; 85025; 85610; 86850; 86900

== ENCOUNTER → 2023-05-29 09:10 | Outpatient (BNVA) | payer OTHER, SELFPAY | PROVIDERS: PCP Emergency Medicine Emergency Medical Services; Visit Provider Dermatology | DX: L57.0 Actinic keratosis (principal); D69.2 Other nonthrombocytopenic purpura; D22.39 Melanocytic nevi of other parts of face; D36.14 Benign neoplasm of peripheral nerves and autonomic nervous system of thorax; L82.1 Other seborrheic keratosis | CPT/HCPCS: 17000; 99203 ==

== ENCOUNTER 2023-06-09 05:52 | Outpatient (CLI) | payer OTHER, SELFPAY ==
[2023-06-09 06:00] VITALS: BP 167/99; PULSE 65; RESP 18; TEMP 36.6; O2SAT 98; BMI 42.3
--- NOTE | 2023-06-09 07:29 | W.PM.OPSUD ---
Surgery/Procedure H&P Update DATE OF PROCEDURE: June 09, 2023 DATE H&P PERFORMED: 05/12/23 H&P UPDATE INFORMATION: I have reviewed H&P completed within last 30 days, I have examined patient prior to procedure and No changes to prior documentation PREOP DIAGNOSIS: High degree AV block/ CHRIS PRIMARY INDICATION FOR PROCEDURE: High degree AV block/ symptomatic bradycardia/ Pacemaker CHRIS PLANNED PROCEDURE: Operation Date: 06/09/23 07:00 Proposed Procedures p generator change out 01498,Z45.010(Not Applicable) - Disha Lam MD PATIENT REASSESSED PRIOR TO SEDATION, WITH NO CHANGE NOTED: Yes PHYSICAL EXAM: alert, oriented x 3, clear to auscultation bilaterally and regular rate & rhythm AIRWAY EVAL/ANESTHESIA PLAN: normal airway, see other exam findings, ASA III, Monitored Anesthesia, Local Anesthesia, Risks, benefits & alternatives of sedation and/or procedure discussed and Patient agrees to continue as planned
[2023-06-09 08:50] VITALS: BP 151/80; PULSE 60; RESP 15; TEMP 36; O2SAT 98
--- NOTE | 2023-06-09 09:36 | P.OP_ITS ---
Operative Report Date of procedure: June 09, 2023 Surgeon: Disha Lam MD Procedure: PROCEDURE: PACEMAKER REVISION PREOPERATIVE DIAGNOSIS: Pacemaker elective replacement indication. POSTOPERATIVE DIAGNOSIS: Pacemaker elective replacement indication. ESTIMATED BLOOD LOSS: Around 5 milliliters. COMPLICATIONS: None. BRIEF HISTORY: The patient is 78-year-old white male who had a permanent pacemaker implantation for. The patient was found to have elective replacement indication, during routine office followup evaluation. For further management of patient's condition for the symptomatic bradycardia, the patient required a pacemaker revision. Patient required a dual-chamber pacemaker for and the need for AV synchrony The procedure was explained to the patient and family in detail with the risks and benefits. Apparently the atrial lead was turned off more than a year ago for over sensing. Patient has been doing okay with the VVIR pacing mode. We have decided to use the dual-chamber pacer still, anticipating a need for atrial pacing in the future. These issues were discussed with the patient and family prior to the procedure. The risks of bleeding, hematoma, vascular injury, infection and other concomitant complications were explained in detail, which the patient understood well and consented to proceed. PROCEDURES PERFORMED: 1. Explantation of the old pacemaker generator. 2. Implantation of the new generator. 3. A venogram was performed and the left subclavian and the SVC via point to be patent. The atrial lead appeared to have lost the slack/displaced The patient brought to the [facility]. The left side of the neck and the subclavian area were cleaned and draped in a sterile fashion. 1% Xylocaine was used for local anesthetic agent. A 2 inch long incision was made just below the previous pacemaker scar. By sharp and blunt dissection, the pacemaker pocket was accessed. The old generator was delivered from the pocket. The generator was detached from the lead. The new Medtronic generator was attached to the lead. The pacemaker pocket was copiously irrigated with vancomycin solution. Complete hemostasis was achieved. The lead was positioned behind the generator and the generator was attached to the pectoralis fascia by suturing with 0 Surgilon. Sponge counts were confirmed. The pacemaker pocket was closed in layers. Skin was approximated using 4-0 Vicryl. EXPLANTED DEVICE: Pacemaker Generator: Brand: Sensia DR Model number: [id number] Serial number : [id number] Date of implant: 07/19/2014 IMPLANTED DEVICES: Ventricular Lead: Date of implantation: 07/19/2014 Model number: [id number] Serial number: [id number] Make: Medtronic. Atrial lead Date of implantation: 07/19/2014 Model number: 5076 Serial number: [id number] Make: Medtronic. Implanted Generator: Date of implantation : 06/09/2023 Brand: Laura XT MRI Surescan. Model number: W1 DR 01 Serial number: [id number] Make: Medtronic Stimulation Threshold: The ventricular sensing was not obtained since the patient was pacer dependent ventricular lead impedance was 513 ohms and the pacing threshold was 0.75 volts at 0.4 milliseconds. The atrial sensing was- millivolts. Atrial lead impedance was 530 ohms and was not pacing The pacemaker was set for VVIR mode with an upper rate of 130 and a lower rate of 60. A pressure dressing was applied over the pacemaker site. The patient was transferred back to medical floor in stable condition. Sponge counts were correct.
[2023-06-09] MEDS: amlodipine 10 mg Tablet PO (10:09)
[2023-06-09] MEDS: metformin 500 mg Tablet PO ×2 (10:09→18:28)
[2023-06-09] MEDS: atorvastatin 40 mg Tablet PO (10:09)
[2023-06-09 11:36] VITALS: BP 148/77; PULSE 67; RESP 17; TEMP 36.3; O2SAT 94
[2023-06-09 15:57] VITALS: BP 137/74; PULSE 60; RESP 19; TEMP 36.4; O2SAT 96
[2023-06-09] MEDS: ceFAZolin 3,000 MG in sodium chloride 0.9% (100 ml) 100 ML 200 MG IV ×2 (16:50→22:56)
[2023-06-09] MEDS: HYDROcodone-acetaminophen 5-325 mg Tablet 1 TAB PO (19:34)
[2023-06-09 19:57] VITALS: BP 147/68; PULSE 60; RESP 19; TEMP 36.8; O2SAT 97
[2023-06-09 21:40] VITALS: PULSE 65
[2023-06-10 00:18] VITALS: BP 158/85; PULSE 60; RESP 17; TEMP 36.6; O2SAT 98
[2023-06-10 04:45] VITALS: BP 140/83; PULSE 60; RESP 14; TEMP 36.6; O2SAT 95
--- NOTE | 2023-06-10 05:05 | ECG_ITS ---
[facility] Test Date: 2023-06-10 Pat Name: Maine Richards Department: Room: 111 Gender: Male Management Internship: : 1945 Requested By: Disha Lam Order Number: [id number] Hernandez MD: Disha Lam M.D. Measurements Intervals [place] Rate: 59 P: 0 MI: 0 QRS: -77 QRSD: 200 T: 106 QT: 509 QTc: 508 Interpretive Statements ELECTRONIC VENTRICULAR PACEMAKER ABNORMAL RHYTHM ECG Compared to ECG 08/12/2022 08:29:06 No significant changes Electronically Signed On 06-10-2023 23:24:49 NURSERY LABORER by Disha Lam M.D. [id number]
[2023-06-10 05:56] VITALS: PULSE 60
[2023-06-10] MEDS: ceFAZolin 3,000 MG in sodium chloride 0.9% (100 ml) 100 ML 200 MG IV (06:09)
[2023-06-10] MEDS: atorvastatin 40 mg Tablet PO (07:58)
[2023-06-10] MEDS: metformin 500 mg Tablet PO (07:58)
[2023-06-10] MEDS: amlodipine 10 mg Tablet PO (07:59)
[2023-06-10 08:00] VITALS: BP 146/82; PULSE 60; RESP 17; TEMP 36.6; O2SAT 97
--- NOTE | 2023-06-10 12:40 | PM.PN ---
Subjective Subjective: This patient admitted to hospital yesterday following the pacemaker revision. He had an uneventful postprocedure course. No hematoma bleeding from the pacemaker site. No arrhythmias are noted. Vital signs are remaining stable. Medications: Medication Review Details: Current Medications Hydrocodone Bitart/Acetaminophen (Hydrocodone-Acetaminophen 5-325 Mg Tablet) 1 tab PO Q4H PRN PRN Reason: MODERATE PAIN Last Admin: 06/09/23 19:34 Dose: 1 tab Amlodipine Besylate (Amlodipine 10 Mg Tablet) 10 mg PO DAILY [facility] Last Admin: 06/10/23 07:59 Dose: 10 mg Atorvastatin Calcium (Atorvastatin 40 Mg Tablet) 40 mg PO DAILY [facility] Last Admin: 06/10/23 07:58 Dose: 40 mg Sodium Chloride (Sodium Chloride 0.9%) 1,000 mls @ 75 mls/hr IV .[id number] [facility] Last Admin: 06/10/23 10:24 Dose: Not Given Metformin HCl (Metformin 500 Mg Tablet) 500 mg PO BID [facility] Last Admin: 06/10/23 07:58 Dose: 500 mg Vitals/I&O/Wt Last Vital Signs Temp 97.9 F 06/10/23 08:00 Pulse 60 06/10/23 08:00 Resp 17 06/10/23 08:00 BP 146/82 06/10/23 08:00 Pulse Ox 97 06/10/23 08:00 O2 Del Method Room Air 06/10/23 08:00 06/09/23 06/10/23 06/10/23 22:59 06:59 14:59 Intake Total 820 / 1060 340 / 1400 340 / 340 Output Total 740 / 740 400 / 1140 Balance 80 / 320 -60 / 260 340 / 340 Weight last 48 hrs Weight 303 lb Physical Exam Narrative: GENERAL: The patient is alert and oriented times three. Not in any acute distress. HEENT: No significant pallor, icterus or lymphadenopathy.Oral cavity: There are no mucous membrane lesions. NECK: Trachea appears to be central. No masses noted. No JVD or thyromegaly appreciated. RESPIRATORY: Chest is symmetrical. No intercostals muscle retraction or any accessory muscle activation. There is no chest wall tenderness. Breath sounds are heard bilaterally. No rales or rhonchi heard. No evidence of any consolidation. BREASTS: Deferred. HEART: The heart sounds are normal. No S3 or S4. Ejection systolic murmur grade 3 or 6 in the aortic area. No pericardial rub ABDOMEN: No vessel pulsations or distention. No tenderness. No organomegaly appreciated. Bowel sounds are normally heard. : Deferred. RECTAL: Deferred. LYMPHATIC: No lymphadenopathy noted in the neck. EXTREMITIES: No edema or cyanosis. No clubbing. MUSCULOSKELETAL: No acute joint deformities or swelling SKIN: There are no significant rashes or ecchymosis NEUROPSYCHIATRIC: The patient is alert and oriented x3. Appears to be in a good mood. No tremors or rigidity noted. A&P Assessment and plan (1) Presence of permanent cardiac pacemaker: Patient status post pacemaker revision. Currently remaining stable. The pacemaker was interrogated this morning. The function was found to be appropriate. (2) Aortic valve sclerosis: (3) Ventricular arrhythmia: Since the patient's symptoms are stable with no recent change, is advised to continue on the current medications. Advised to continue with the medication and exercise. (4) Hypertension: The blood pressure seems to be in the normal range. Qualifiers: Hypertension type: essential hypertension Qualified Code(s): I10 - Essential (primary) hypertension Plan Since the patient is remained stable with no new symptoms, he is being discharged home today. Will be seen in the clinic next week by the nurse practitioner for a wound check and pacemaker check Patient is to take p.o. antibiotics for 5 days-prescription is given Multivitamins for 2 weeks Appointment with me in the office in 1 month Attestations Medical Necessity Statement*: Discharge home today Coding Level of Care Code 36483 Diagnoses Presence of permanent cardiac pacemaker Z95.0 Aortic valve sclerosis I35.8 Ventricular arrhythmia I49.9 Hypertension I10 Hypertension type: essential hypertension
--- NOTE | 2023-06-10 14:15 | PC.NURSE ---
Discharge Note Patient discharged to home via POV accompanied by family. Discharge instructions reviewed with patient and/or sales representative publications. Mobile pharmacy medications and/or prescriptions provided. Belongings/home medications returned.
== END 2023-06-10 14:16 | disposition home or self-care (01) ==
LOC: CCL 08:08 → CSU 16:24
PROVIDERS: PCP Emergency Medicine Emergency Medical Services; Visit Provider Internal Medicine Cardiovascular Disease
DX: Z45.010 Encounter for checking and testing of cardiac pacemaker pulse generator [battery] (principal); I35.8 Other nonrheumatic aortic valve disorders; I49.9 Cardiac arrhythmia, unspecified; I10 Essential (primary) hypertension
CPT/HCPCS: 33228; 36415; 85610; 93005; 96361; 96365; 96367; 96376; 97165; 99152; 99153; A4216; C1769; C1786; J0690; J2250; J3010; J3370; J7030; J7040; J7050

== ENCOUNTER 2023-06-09 06:00 | Outpatient (CLI) | payer OTHER, SELFPAY ==
--- NOTE | 2023-06-09 06:00 | XACV_ITS ---
Exam Room: 1 Ht: 180 cm Wt: 137 kg BSA: 2.69 m2 Gender: Male : 1945 Any Known Allergies: Other Exam Priority: Routine Procedure(s): Procedure Description: Diagnostic procedure Procedure Description: Miscellaneous Procedure Description: Generator Replacement PP (EOL) Diagnostic Cath Status: Elective Diagnostic Findings * A left subclavian venogram was performed in the AP view by injecting 20 cc of Omnipaque into the left antecubital vein. The left subclavian and the superior vena cava where found to be patent. The right atrial lead appeared to be at to be attached to the upper part of the right atrium, close to the superior vena cava. Conclusions 1. Patient with a dual-chamber pacemaker implantation in June 2014. Atrial lead was found to be over sensing. Venogram was performed to see the patency of the subclavian vein. 2. The subclavian venogram revealed patent left subclavian vein and the superior vena cava. The atrial lead appeared to be attached to the upper part of the right atrium near to the superior vena cava with no slack. Clinical Evaluation EBL: 5mL-10mL Procedural Details Procedure Consent Obtained. Admit Source: Out Patient. Pre-Procedure Time Out. Ancef 1g IV was given at 0732 in clinical laboratory director. Supplies: Cath pack, micropunture, bovie pen, 2-0 silk, 0 surgilon, 3-0 vicryl, 4-0 vicryl. Pre sponge count: 55. Pre sharps count: 19. Pre instrument count: 10. Baseline sample Acquired. HR: 65 BPM. Physician notified. Current diagnosis: PPM CHRIS. PERRLA. Strong, equal hand pie maker bilaterally. Lungs clear x 5 lobes. IV Site on Arrival: 20 gauge in the left anticubital. IV Fluids: 0.9% NaCl at 75ml/hr. 0 mL infused prior to bed laborer. Oxygen started at 2liters/min via nasal canula. bilateral subclavian region was prepped with chloroprep then draped in the usual sterile fashion. Physician arrived. Physician scrubbed in. Time out performed with cath team. 20 mL contrast injection was performed for subclavian visualization. Lidocaine 1% with epi infiltrated to Left subclavian area. Incision and pacer pocket made in left subclavian region. Bovie pen used to cauterize bleeding vessel. Lidocaine 1% with epi infiltrated to Left subclavian area. 1 instrument added. Generator out of pocket. V-lead dettached from generator. A-lead dettached from generator. Generator attached and tested. Antibiotic flush used to clean pacer pocket. Generator secured with surgilon. Generator Lot# [id number] EXP 11-22-2024. Subcutaneous tissue closed with 3-0 vicryl. Cutaneous tissue closed with 4-0 vicryl. All final counts correct. left subclavian pocket dressed per physician order. Armen wrap and 4x4's in place. No bleeding or hematoma noted at left subclavian pocket. Total IV fluids: 90 mL. Medication's Wasted: Lidocaine 1% with epi = 4 mL. Medication's Wasted: Other = Versed 1 mg. PERRLA. Strong, equal hand pie maker bilaterally. No VTE prophylaxis required. Post Procedure: Pulses reassessed and unchanged. Post-op diagnosis: CHRIS. Estimated blood loss: 5mL-10mL. Complications: None. Procedure completed. Vital chart was stopped. Procedure Medications Start: 7:34 AM Stop: 7:34 AM Medication: Versed Amount: 1 mg Route: I.V. Start: 7:34 AM Stop: 7:34 AM Medication: Fentanyl Amount: 50 mcg Route: I.V. Start: 8:02 AM Stop: 8:02 AM Medication: Versed 1 mg and Fentanyl 25 mcg Amount: 1 Route: I.V. Start: 8:10 AM Stop: 8:10 AM Medication: Fentanyl Amount: 25 mcg Route: I.V. Start: 8:15 AM Stop: 8:15 AM Medication: Versed Amount: 1 mg Route: I.V. I, the attending physician, have reviewed and verified all procedure medications. Yes, all medications given per verbal order History/Risk Factors Hypertension: Yes Dyslipidemia: Yes Peripheral Arterial Disease (PAD): No Myocardial Infarction (NC): No Obesity: Yes Renal Disease: No Tobacco Use: Former Prior Interventions PCI: No CABG: No Valve Surgery: No Report Signatures Finalized by Dr Disha Lam MD [facility] on 06/09/2023 01:39 PM
[2023-06-09 06:24] LABS: Basophils # 0.1 10^3/uL (0.0-0.1); Basophils % 0.9 %; Eosinophils # 0.3 10^3/uL (0.0-0.8); Eosinophils % 3.8 %; Hematocrit 45.4 % (37-53); Lymphocytes % 34.9 %; Mean Corpuscular HGB Conc 32.4 g/dL (30-55); Mean Corpuscular Hemoglobin 30.3 pg (27-33); Mean Corpuscular Volume 93.6 fl (82-101); Mean Platelet Volume 9.2 fL (7.4-10.4); Monocytes # 0.9 10^3/uL (0.2-0.9); Monocytes % 10.7 %; Neutrophils # 4.17 10^3/uL (1.8-7.7); Neutrophils % 49.3 %; Nucleated Red Blood Cells % 0 %; Platelet Count 274 10^3/cmm (157-399); Red Blood Count 4.85 10^6/uL (3.85-5.65); Red Cell Distribution Width 14.6 % (12.1-15.1); White Blood Count 8.47 10^3/uL (3.29-11.43)
[2023-06-09 06:43] LABS: Anion Gap 13.1 (5-19); Blood Urea Nitrogen 16 mg/dL (8-23); Calcium 9.3 mg/dL (8.5-10.5); Carbon Dioxide 27 mmol/L (22-29); Chloride 106 mmol/L (98-107); Glucose 105 mg/dL (65-115); Osmolality Calculated 296 mOsm/kg (285-295); Potassium 4.1 mmol/L (3.5-5.1); Sodium 142 mmol/L (136-145)
== END 2023-06-09 06:01 | disposition home or self-care (01) ==
LOC: CCL 07-24 14:59
PROVIDERS: PCP Emergency Medicine Emergency Medical Services; Visit Provider Internal Medicine Cardiovascular Disease
DX: Z45.010 Encounter for checking and testing of cardiac pacemaker pulse generator [battery] (principal); I49.9 Cardiac arrhythmia, unspecified; I10 Essential (primary) hypertension; E11.9 Type 2 diabetes mellitus without complications; Z79.84 Long term (current) use of oral hypoglycemic drugs; Z87.891 Personal history of nicotine dependence; E78.5 Hyperlipidemia, unspecified
CPT/HCPCS: 36415; 80048; 85025; J0690

== ENCOUNTER → 2023-06-16 09:51 | Outpatient (BNVA) | payer OTHER, SELFPAY | PROVIDERS: PCP Emergency Medicine Emergency Medical Services; Visit Provider Nurse Practitioner Family | DX: Z95.0 Presence of cardiac pacemaker (principal) | CPT/HCPCS: 99024; 99213 ==

== ENCOUNTER → 2023-08-04 09:59 | Outpatient (BNVA) | payer OTHER, SELFPAY | PROVIDERS: PCP Emergency Medicine Emergency Medical Services; Visit Provider Internal Medicine Cardiovascular Disease | DX: Z95.0 Presence of cardiac pacemaker (principal); I10 Essential (primary) hypertension; I35.8 Other nonrheumatic aortic valve disorders; E11.9 Type 2 diabetes mellitus without complications; I49.8 Other specified cardiac arrhythmias; Z87.891 Personal history of nicotine dependence; Z79.84 Long term (current) use of oral hypoglycemic drugs | CPT/HCPCS: 99214 ==

== ENCOUNTER → 2023-08-14 13:07 | Outpatient (BNVA) | payer OTHER, SELFPAY | PROVIDERS: PCP Emergency Medicine Emergency Medical Services; Visit Provider Podiatrist Foot & Ankle Surgery | DX: L60.3 Nail dystrophy (principal); G62.9 Polyneuropathy, unspecified; E11.42 Type 2 diabetes mellitus with diabetic polyneuropathy; Z79.84 Long term (current) use of oral hypoglycemic drugs | CPT/HCPCS: 11721; 99203 ==

== ENCOUNTER → 2023-11-10 12:43 | Outpatient (BNVA) | payer OTHER, SELFPAY | PROVIDERS: PCP Emergency Medicine Emergency Medical Services; Visit Provider Podiatrist Foot & Ankle Surgery | DX: L60.3 Nail dystrophy (principal); G62.9 Polyneuropathy, unspecified; E11.42 Type 2 diabetes mellitus with diabetic polyneuropathy; Z79.84 Long term (current) use of oral hypoglycemic drugs | CPT/HCPCS: 11721 ==

== ENCOUNTER → 2024-01-20 12:48 | Outpatient (BNVA) | payer OTHER, SELFPAY | PROVIDERS: PCP Emergency Medicine Emergency Medical Services; Visit Provider Podiatrist Foot & Ankle Surgery | DX: L60.3 Nail dystrophy (principal); G62.9 Polyneuropathy, unspecified; E11.42 Type 2 diabetes mellitus with diabetic polyneuropathy; Z79.84 Long term (current) use of oral hypoglycemic drugs | CPT/HCPCS: 11721 ==

== ENCOUNTER → 2024-02-03 09:42 | Outpatient (BNVA) | payer OTHER, SELFPAY | PROVIDERS: PCP Emergency Medicine Emergency Medical Services; Visit Provider Internal Medicine Cardiovascular Disease | DX: I10 Essential (primary) hypertension (principal); Z95.0 Presence of cardiac pacemaker; I49.9 Cardiac arrhythmia, unspecified; I35.8 Other nonrheumatic aortic valve disorders; E11.9 Type 2 diabetes mellitus without complications; E66.01 Morbid (severe) obesity due to excess calories; Z68.41 Body mass index [BMI] 40.0-44.9, adult; Z72.0 Tobacco use; Z79.84 Long term (current) use of oral hypoglycemic drugs | CPT/HCPCS: 99214 ==

== ENCOUNTER → 2024-04-13 10:45 | Outpatient (BNVA) | payer OTHER, SELFPAY | PROVIDERS: PCP Emergency Medicine Emergency Medical Services; Visit Provider Podiatrist Foot & Ankle Surgery | DX: L60.3 Nail dystrophy (principal); G62.9 Polyneuropathy, unspecified; E11.42 Type 2 diabetes mellitus with diabetic polyneuropathy; Z79.84 Long term (current) use of oral hypoglycemic drugs | CPT/HCPCS: 11721 ==

== ENCOUNTER → 2024-06-15 10:37 | Outpatient (BNVA) | payer OTHER, SELFPAY | PROVIDERS: PCP Emergency Medicine Emergency Medical Services; Visit Provider Podiatrist Foot & Ankle Surgery | DX: L60.3 Nail dystrophy (principal); G62.9 Polyneuropathy, unspecified; E11.42 Type 2 diabetes mellitus with diabetic polyneuropathy; Z79.84 Long term (current) use of oral hypoglycemic drugs | CPT/HCPCS: 11721 ==

== ENCOUNTER → 2024-08-03 14:13 | Outpatient (BNVA) | payer OTHER, SELFPAY | PROVIDERS: PCP Emergency Medicine Emergency Medical Services; Visit Provider Internal Medicine Cardiovascular Disease | DX: I10 Essential (primary) hypertension (principal); Z95.0 Presence of cardiac pacemaker; I35.8 Other nonrheumatic aortic valve disorders; E11.9 Type 2 diabetes mellitus without complications; E66.01 Morbid (severe) obesity due to excess calories; Z68.41 Body mass index [BMI] 40.0-44.9, adult; I49.8 Other specified cardiac arrhythmias; Z79.84 Long term (current) use of oral hypoglycemic drugs | CPT/HCPCS: 99214 ==

== ENCOUNTER → 2024-09-14 09:42 | Outpatient (BNVA) | payer OTHER, SELFPAY | PROVIDERS: PCP Emergency Medicine Emergency Medical Services; Visit Provider Podiatrist Foot & Ankle Surgery | DX: E11.8 Type 2 diabetes mellitus with unspecified complications (principal); L60.3 Nail dystrophy; G62.9 Polyneuropathy, unspecified; E11.42 Type 2 diabetes mellitus with diabetic polyneuropathy; Z79.84 Long term (current) use of oral hypoglycemic drugs | CPT/HCPCS: 99213 ==

== ENCOUNTER → 2024-11-16 09:47 | Outpatient (BNVA) | payer OTHER, SELFPAY | PROVIDERS: PCP Emergency Medicine Emergency Medical Services; Visit Provider Podiatrist Foot & Ankle Surgery | DX: E11.42 Type 2 diabetes mellitus with diabetic polyneuropathy (principal); L60.3 Nail dystrophy; L84 Corns and callosities; G62.9 Polyneuropathy, unspecified; B35.3 Tinea pedis; Z79.84 Long term (current) use of oral hypoglycemic drugs | CPT/HCPCS: 11056; 11721; 99213 ==

== ENCOUNTER → 2025-02-15 09:45 | Outpatient (BNVA) | payer OTHER, SELFPAY | PROVIDERS: PCP Nurse Practitioner Family; Visit Provider Podiatrist Foot & Ankle Surgery | DX: E11.42 Type 2 diabetes mellitus with diabetic polyneuropathy (principal); L60.3 Nail dystrophy; G62.9 Polyneuropathy, unspecified; Z79.84 Long term (current) use of oral hypoglycemic drugs | CPT/HCPCS: 11721 ==

== ENCOUNTER → 2025-02-18 10:03 | Outpatient (BNVA) | payer OTHER, SELFPAY | PROVIDERS: PCP Nurse Practitioner Family; Visit Provider Nurse Practitioner Family | DX: I10 Essential (primary) hypertension (principal); I49.9 Cardiac arrhythmia, unspecified; I35.8 Other nonrheumatic aortic valve disorders; E11.9 Type 2 diabetes mellitus without complications; Z79.84 Long term (current) use of oral hypoglycemic drugs; E66.01 Morbid (severe) obesity due to excess calories; Z68.41 Body mass index [BMI] 40.0-44.9, adult; Z95.0 Presence of cardiac pacemaker; F17.200 Nicotine dependence, unspecified, uncomplicated | CPT/HCPCS: 36415; 80048; 83036; 99213 ==

== ENCOUNTER → 2025-04-27 09:17 | Outpatient (BNVA) | payer OTHER, SELFPAY | PROVIDERS: PCP Family Medicine Geriatric Medicine; Visit Provider Podiatrist Foot & Ankle Surgery | DX: E11.42 Type 2 diabetes mellitus with diabetic polyneuropathy (principal); L60.3 Nail dystrophy; G62.9 Polyneuropathy, unspecified; Z79.84 Long term (current) use of oral hypoglycemic drugs | CPT/HCPCS: 11721 ==